=== PATIENT | female | born 2000 | race Caucasian/White ===

== ENCOUNTER 2022-08-04 14:51 | Emergency (ER) | payer OTHER ==
[~2022-08-04] VITALS: Ht 165.1 cm; Wt 64.5 kg
[2022-08-04 15:15] VITALS: BP 116/76; TEMP 98.1
[2022-08-04 16:58] LABS: COLLECTION METHOD CLEAN CATCH
[2022-08-04 17:03] LABS: URINE APPEARANCE Clear (CLEAR/HAZY); URINE COLOR Yellow (YELLOW)
[2022-08-04 17:04] LABS: PH 5.5 (5.0-8.5); URINE BLOOD Negative (NEGATIVE); URINE GLUCOSE Negative (NEGATIVE); URINE KETONE TRACE (NEGATIVE); URINE NITRATE Negative (NEGATIVE); URINE PROTEIN(semi-quant) Negative (NEGATIVE); URINE UROBILINOGEN 0.2 E.U/dL (0.2-1.0)
[2022-08-04 17:07] LABS: MUCOUS Present (NOT PRESENT); SQUAMOUS EPITHELIAL 0-2 /hpf (0-10); URINE BACTERIA Rare /hpf (NONE SEEN); URINE RBC 0-2 /hpf (0-2)
[2022-08-04] MEDS ORDERED: MEDROL 4MG DOSPA4 MG PO (17:42)
[2022-08-04] MEDS ORDERED: FLEXERIL 1010 MG/TAB PO (17:42)
[2022-08-04 18:11] VITALS: PULSE 75
== END 2022-08-04 18:12 | disposition home or self-care (01) ==
LOC: COL.ER 14:51
PROVIDERS: Physician Assistant
DX: M54.17 Radiculopathy, lumbosacral region (principal)
CPT/HCPCS: J1885

== ENCOUNTER → 2023-01-08 | Outpatient (CLI) | payer BC ==
[~2023-01-08] MED LIST: FLEXERIL 1010 MG/TAB PO; MEDROL 4MG DOSPA4 MG PO; ZOFRAN ODT4 MG PO
== END ==
LOC: COL.RAD 06:29
DX: R10.11 Right upper quadrant pain (principal)
CPT/HCPCS: A9537

== ENCOUNTER → 2023-09-28 | Outpatient (CLI) | payer BC | LOC: COL.RAD 13:01 | DX: E04.1 Nontoxic single thyroid nodule (principal); E06.3 Autoimmune thyroiditis ==